=== PATIENT | female | born 1970 | race African-American/Black ===

== ENCOUNTER → 2017-02-12 | Outpatient (CLI) | payer OTHER ==
--- NOTE | 2017-02-12 14:08 | RAD ---
EXAM: DIGITAL DIAGNOSTIC BILATERAL, BREAST LEFT HISTORY: Left axillary tenderness COMPARISON: 04/05/2015 Standard mammographic views are obtained of the bilateral breasts. Additionally implant displaced views were obtained. This study was interpreted with the benefit of Computerized Aided Detection (CAD). FINDINGS: The breast parenchyma is dense, which could reduce the sensitivity of mammography. Breast parenchyma level density 4.. There is no definite new suspicious spiculated mass or worrisome new cluster of microcalcifications. There are bilateral breast implants seen. Secondary to the patient's tenderness in the left axillary region they were then sent to ultrasound to further evaluate the area. Ultrasound findings: Focused ultrasound images were obtained through the left axillary region which demonstrate multiple lymph nodes scattered throughout the area with one of the largest measuring approximately 13 x 8 mm with a preserved fatty hilum. IMPRESSION: Interval placement of bilateral breast implants without a definite suspicious mass identified. There are multiple lymph nodes seen within the left axillary region ultrasound but they're not grossly enlarged. If the patient has worsening or any new symptoms the examination can be repeated at a later time to assess whether there is interval development of a sonographically or mammographically visible mass. BI-RADS CATEGORY: 2 BENIGN FINDING RECOMMENDED FOLLOW-UP: 12M 12 MONTH FOLLOW-UP PQRS compliance statement: Patient information was entered into a reminder system with a target due date for the next mammogram. Mammography is a sensitive method for finding small breast cancers, but it does not detect them all and is not a substitute for careful clinical examination. A negative mammogram does not negate a clinically suspicious finding and should not result in delay in biopsying a clinically suspicious abnormality. "Our facility is accredited by the [employer] Mammography Program."
== END | disposition home or self-care (01) ==
LOC: MAMMO 12:28
PROVIDERS: ATTEND Nurse Practitioner Family
DX: N64.4 Mastodynia (principal)
CPT/HCPCS: 76641; G0204; 77066

== ENCOUNTER → 2017-03-14 | Outpatient (CLI) | payer OTHER ==
--- NOTE | 2017-03-14 11:12 | RAD ---
Small bowel series, 03/14/2017: History: Diarrhea, abdominal pain The preliminary abdominal image demonstrates a nonspecific gas pattern. There is no evidence of organomegaly or abnormal abdominal calcification. Overhead and spot images were obtained following oral ingestion of liquid barium. 0.7 minutes of fluoroscopy time was utilized. 3 fluoroscopic spot images were recorded. The small bowel loops are of normal caliber with no evidence of thickening of their folds. There is prompt passage of the barium through the small bowel into the colon. The terminal ileum is well visualized and shows no abnormality. IMPRESSION: No significant small bowel abnormality is detected.
== END | disposition home or self-care (01) ==
LOC: RAD 09:12
PROVIDERS: ATTEND Internal Medicine Gastroenterology
DX: R19.7 Diarrhea, unspecified (principal)
CPT/HCPCS: 74250

== ENCOUNTER → 2017-04-30 | Outpatient (CLI) | payer OTHER ==
[~2017-04-30] MED LIST: BUPIVACAINE MPF 0.5% 30 ML VIAL. ONE; LIDOCAINE 1% PF 30 ML VIAL. ONE
== END | disposition home or self-care (01) ==
LOC: SURG 14:44
PROVIDERS: ATTEND Anesthesiology Pain Medicine
DX: M47.812 Spondylosis without myelopathy or radiculopathy, cervical region (principal); Z72.89 Other problems related to lifestyle
CPT/HCPCS: 64490; 64491; J2001; J3490

== ENCOUNTER → 2018-08-26 | Outpatient (CLI) | payer OTHER | END | disposition home or self-care (01) | LOC: SURG 10:59 | PROVIDERS: ATTEND Anesthesiology Pain Medicine | DX: M47.812 Spondylosis without myelopathy or radiculopathy, cervical region (principal); G47.30 Sleep apnea, unspecified; Z72.89 Other problems related to lifestyle; Z79.899 Other long term (current) drug therapy | CPT/HCPCS: 64490; 64491; J2001; J3490; 64493; 64494; 64495 ==